=== PATIENT | male | born 1985 | race Caucasian/White ===

== ENCOUNTER 2022-02-21 09:02 | Day surgery (SDC) | payer OTHER ==
[2022-02-21] MEDS ORDERED: Bacitracin 1 PK ONE ×2 (09:47→10:25)
[2022-02-21] MEDS ORDERED: Bupivacaine 0.25% 10 ML VIAL ONE (09:47)
[2022-02-21] MEDS ORDERED: Thrombin 5000 UNITS/5 ML VIAL ONE (12:27)
[2022-02-21] MEDS ORDERED: Bacitracin Zinc Ointment 30 gm TUBE ONE (12:27)
[2022-02-21] MEDS ORDERED: Mineral Oil Sterile 10 ML VIAL ONE (12:27)
[2022-02-21] MEDS ORDERED: Bupivacaine PF 0.5% 30 ML VIAL ONE (12:27)
[2022-02-21] MEDS ORDERED: fentaNYL Citrate/PF 100 MCG/2 ML SYRINGE ONE (13:01)
[2022-02-21] MEDS ORDERED: Sodium Chloride 0.9% 100 ML ONE (13:10)
[2022-02-21] MEDS ORDERED: CEFAZOLIN 2 GM VIAL ONE (13:10)
[2022-02-21] MEDS ORDERED: Ketorolac Tromethamine 30 MG/ML VIAL ONE ×2 (13:21→15:03)
[2022-02-21] MEDS ORDERED: PROPOFOL 200 MG/20 ML VIAL ONE (13:21)
[2022-02-21] MEDS ORDERED: Ondansetron PF 4 MG/2 ML Vial ONE (13:21)
[2022-02-21] MEDS ORDERED: Succinylcholine 200 MG/10 ml SYRINGE FS ONE (13:21)
[2022-02-21] MEDS ORDERED: FENTANYL 50 MCG/ML VIAL 50 MCG/ML VIAL ONE (14:59)
== END 2022-02-21 15:50 | disposition home or self-care (01) ==
LOC: ERS 09:02 → SDC 12:27
PROVIDERS: ATTEND Orthopaedic Surgery Hand Surgery
PROC: 0HQQXZZ Repair Finger Nail, External Approach (ICD-10-PCS; principal; 2022-02-21)
PROC: 0PBV0ZZ Excision of Left Finger Phalanx, Open Approach (ICD-10-PCS; principal; 2022-02-21)
PROC: 0HRGX73 Replacement of Left Hand Skin with Autologous Tissue Substitute, Full Thickness, External Approach (ICD-10-PCS; principal; 2022-02-21)
DX: S67.197A Crushing injury of left little finger, initial encounter (principal); S62.637B Displaced fracture of distal phalanx of left little finger, initial encounter for open fracture; F17.210 Nicotine dependence, cigarettes, uncomplicated; Z79.899 Other long term (current) drug therapy; Z88.2 Allergy status to sulfonamides; W23.0XXA Caught, crushed, jammed, or pinched between moving objects, initial encounter; Y99.0 Civilian activity done for income or pay
CPT/HCPCS: J1885; J2405; J2704; J3010; J3490; S0020